=== PATIENT | male | born 1955 | race Caucasian/White ===

== ENCOUNTER → 2020-01-11 | Outpatient (CLI) | payer MEDICARE ==
[2020-01-11 07:44] LABS: Appearance,Urine Clear (Clear); Bilirubin,Urine Negative (Negative); Blood,Urine Negative (Negative); Color,Urine Yellow; Glucose,Urine (UA) Negative (Negative); Ketones,Urine Negative (Negative); Leukocyte Esterase,Urine Negative (Negative); Nitrite,Urine Negative (Negative); Protein,Urine Negative (Negative); Specific Gravity,Urine 1.021 (1.001-1.035); Urobilinogen,Urine <2.0 mg/dL (<2.0)
[2020-01-11 07:46] LABS: Basophils # (A) 0.1 k/uL (0-0.2); Basophils % (A) 1 %; Eosinophils # (A) 0.4 k/uL (0-0.7); Eosinophils % (A) 4 %; HCT 39.7 % (39.0-53.0); HGB 13.7 gm/dL (13.0-17.5); Lymphocytes # (A) 2.9 k/uL (1.0-4.8); Lymphocytes % (A) 29 %; MCH 32.4 pg (25.0-35.0); MCHC 34.6 g/dL (31.0-37.0); MCV 93.7 fL (80.0-100.0); Mean Platelet Volume 6.9; Monocytes # (A) 0.6 k/uL (0-1.0); Monocytes % (A) 6 %; Neutrophils # (A) 5.8 k/uL (1.3-7.7); Neutrophils % (A) 58 %; Platelet Count 326 k/uL (150-450); RBC 4.23 m/uL (4.30-5.90); RDW 12.2 % (11.5-15.5); WBC 9.9 k/uL (3.8-10.6)
[2020-01-11 07:54] LABS: INR 0.9 (<1.2); Partial Thromboplastin Time 22.7 sec (22.0-30.0); Prothrombin Time 9.8 sec (9.0-12.0)
[2020-01-11 07:56] LABS: ALT 32 U/L (4-49); AST 27 U/L (17-59); African American GFR (CKD) >90 (>60 ml/min/1.73 sqM); Albumin 4.3 g/dL (3.5-5.0); Alkaline Phosphatase 72 U/L (38-126); Anion Gap 7 mmol/L; Blood Urea Nitrogen 19 mg/dL (9-20); Calcium 9.7 mg/dL (8.4-10.2); Carbon Dioxide 28 mmol/L (22-30); Chloride 103 mmol/L (98-107); Glucose 152 mg/dL (74-99); Non-African American GFR(CKD) >90 (>60 ml/min/1.73 sqM); Potassium 4.9 mmol/L (3.5-5.1); Sodium 138 mmol/L (137-145); Total Bilirubin 0.5 mg/dL (0.2-1.3); Total Protein 6.9 g/dL (6.3-8.2)
== END | disposition home or self-care (01) ==
LOC: LABPAT 06:59
PROVIDERS: ATTEND Orthopaedic Surgery
DX: Z01.818 Encounter for other preprocedural examination (principal); Z79.01 Long term (current) use of anticoagulants; Z01.812 Encounter for preprocedural laboratory examination
CPT/HCPCS: 36415; 80053; 81003; 85025; 85610; 85730; 87070; 93005

== ENCOUNTER 2020-01-18 10:59 | Day surgery (SDC) | payer MEDICARE, OTHER ==
[2020-01-14 10:20] VITALS: BMI 29.9
[~2020-01-18 10:59] MED LIST: ACETAMINOPHEN TAB 500 MG TAB PO ONE; MELOXICAM 7.5 MG TAB PO ONE; ONDANSETRON 4 MG/2 ML VIAL IVP ONE; TRANEXAMIC ACID 1,000 MG in SODIUM CHLORIDE 0.9% 100 ML IVPB ONE
[2020-01-18] MEDS ORDERED: DEXAMETHASONE SOD PHOSPHATE 10 MG/ML 1 ML VIAL IV ONE (11:17)
[2020-01-18] MEDS ORDERED: HYDROmorphone 0.5 MG/0.5 ML SYRINGE IVP PRN ×3 (11:17→14:52)
[2020-01-18] MEDS ORDERED: ONDANSETRON 4 MG/2 ML VIAL IVP ONE (11:17)
[2020-01-18] MEDS ORDERED: LACTATED RINGERS 1,000 ML IV SCH (11:17)
[2020-01-18 11:37] LABS: Glucose,Whole Blood 164 mg/dL (75-99)
[2020-01-18] MEDS ORDERED: TRANEXAMIC ACID 1,000 MG/10 ML VIAL ONE (12:31)
[2020-01-18] MEDS ORDERED: MIDAZOLAM 2 MG/2 ML VIAL ONE (12:31)
[2020-01-18] MEDS ORDERED: PROPOFOL 10 MG/ML 20 ML VIAL IV ONE (12:31)
[2020-01-18] MEDS ORDERED: PHENYLEPHRINE-0.9% NACL SYG 1 MG/10 ML SYRINGE ONE (12:31)
[2020-01-18] MEDS ORDERED: SODIUM CHLORIDE 0.9% 100 ML BAG ONE (12:31)
[2020-01-18] MEDS: ROPIVACAINE 246.25 MG, EPINEPHrine 0.5 MG, KETOROLAC 30 MG, cloNIDine HCL/PF 80 MCG, WA... MISCELLANE ONE ×10 (13:20→13:39)
[2020-01-18] MEDS ORDERED: ceFAZolin 3,000 MG in SODIUM CHLORIDE 0.9% IRRIGATIO 3,000 ML IRRIGATION ONE (13:34)
[2020-01-18] MEDS ORDERED: LACTATED RINGERS 1,000 ML IV ONE (13:45)
--- NOTE | 2020-01-18 14:22 | P.OP ---
Date of Procedure: 01/18/20 Procedure(s) Performed: PREOPERATIVE DIAGNOSIS: Right hip severe osteoarthritis POSTOPERATIVE DIAGNOSIS: Right hip severe osteoarthritis OPERATION: Right hip total replacement arthroplasty (uncemented implantation with ceramic on polyethylene articulation). ANESTHESIA: Spinal ESTIMATED BLOOD LOSS: 200 ml. CANDY VENDOR: Astrid Dia PA-C (assistance with: patient positioning, retraction, exposure, hemostasis, leg positioning, implantation, irrigation, closure, dressing) COMPLICATIONS: None apparent. COMPONENTS IMPLANTED: Satcia continuum acetabular cup with cluster holes; continuum longevity 15 elevated liner, 32 mm id; Stacia VerSys Fiber Metal stem; VerSys 32 mm femoral head with +0 mm neck length extension INDICATIONS: Mr. Blair a 64-year-old male with significant end-stage osteoarthritis involving the right hip and commensurate severe symptoms. he presents to the operating room today for total hip replacement. I have discussed the steps of the operation as well as potential risks and complications as being inclusive of, but not limited to: Leading, infection, scarring, discomfort, or vessel and/or nerve damage, need for further surgery, loosening, dislocation, wear, osteolysis, limb length inequality, fracture, blood clot, pulmonary embolism, , persistent limp, and other risks. The patient is aware these risks and wishes to proceed with surgery and has signed a consent form. PROCEDURE: After appropriate consent was obtained, the patient was taken to the operating room and placed in supine position. Spinal anesthetic was administered and after confirmation of adequate anesthesia, the patient was placed into the lateral decubitus position with the right side up. Care was taken to make sure that all pressure points were adequately padded and he was stabilized to the table with a [place] hip positioner. The right hip was prepped and draped in the usual aseptic fashion using a combination of ChloraPrep and alcohol. Ioban drape was used for the case and the patient received intravenous antibiotics prior to the incision. "Time out" was called, confirming patient identity, side, procedure, availability of implants and administration of antibiotics and tranexamic acid. The incision was created directly over the greater trochanter and carried s lightly posteriorly for a posterior approach to the hip. The incision was then deepened down to subcutaneous tissue and fascia aquiles. Fascia aquiles was split in line with the incision and split proximally along the fibers of the gluteus mushtaq. The underlying fibers of the muscle were teased apart using finger dissection and bleeding vessels were picked up and coagulated. Retractor was then placed posteriorly consisting of a blunt Downey. The short external rotators and capsule were exposed using good visualization of the attachment of the external rotators to the femur was established. The short external rotators and capsule were released using electrocautery from their femoral attachments. A hockey stick shaped incision was created in the capsule. Joint fluid was evacuated and the patient's hip was able to be dislocated fairly easily. The patient's femoral head was severely arthritic with eburnated bone present and a 360 degrees gagnon of osteophytes. The femoral neck cut was created approximately 1 cm superior to the lesser trochanter using a reciprocating saw. The femoral head and neck fragment was removed and attention was then directed to the acetabulum. An anterior acetabular retractor was applied followed by posterior retraction of the capsule with a Meyerding retractor. This afforded good visualization into the acetabular cavity. Soft tissue was removed and residual cartilage within the acetabular vault was removed using a curette. Labrum was removed using a long-handled knife. Attention was then directed to reaming. The size 44 reamer was used first, followed by increasing increments until the final size reamer was used. Please see the implantation sheet for exact sizes used for the components. Once the final reamer had been utilized to expand the socket it was noted that there was a good supportive bone around the acetabular socket and no further reaming needed to be performed. The trial the same size as the last reamer used was then impacted into the acetabular vault and found to have good fit. The acetabular component, one size (2mm) greater than the trial was then called for. The cluster holes were placed posteriorly and the component was impacted in a position of approximately 40 degrees abduction and 20 degrees anteversion. This matched this patient's quechan anteversion and it was noted that the cup had excellent stability without need for additional screw fixation. Attention was then directed to the acetabular liner. The anteversion and abduction angle of the component was noted to be very good. A 15 elevated liner was used and locked into position with the elevation posterior superior. Osteophytes around the posterior and inferior aspect of the acetabulum were trimmed as necessary to prevent any impingement. Attention was then directed back to the proximal femur. Retractors were placed around the proximal femur and box osteotome was used followed by canal finder and trochanteric reamer. Cylindrical reaming was performed. Progressive broaching was then performed starting with a #10 broach and progressing final size, in a position of 15 degrees anteversion. Unga anteversion was within 5 degrees of stem position. The final size broach had excellent fit and fill of the patient's metaphysis and diaphysis. Trial reduction was then performed starting with size 32 mm femoral head and various neck combination of stability, limb length equality, and soft tissue tension. Trial components were then removed. The canal was lavaged and the final size femoral stem component was impacted into position. The implant fit very well and had excellent stability. The femoral head was then impacted onto the [place] taper. Blood and debris were removed from the acetabular component and the hip was then reduced and checked for stability, limb length and soft tissue tension. These parameters found to be satisfactory, the wound was then thoroughly irrigated with normal saline. Final hemostasis was obtained using electrocautery and IV tranexamic acid, 1 g given at the time of prepping and draping, and another 1 g given at the time of closure. Local anesthetic solution consisting of ropivacaine with epinephrine, clonidine, and ketorolac was also used throughout the case targeting the capsule, fascia, and skin. Closure of the capsule was performed meticulously using #3 Vicryl suture. Four [id number] sutures were placed in the posterior capsule along with repair of the external rotators. The fascia aquiles was then repaired using combination of #3 Vicryl suture in interrupted fashion and Quill and running fashion. 2-0 Vicryl suture was used for the subcutaneous tissues and 3-0 Quill for the skin. Dermabond or Steri-Strips were then applied. The patient tolerated the procedure well. There were no complications and the wound bed was dry and there was no need for drain placement. Sterile dressing was then applied and the patient was carefully removed from the operating room table, placed on the stretcher and was taken to the recovery room in stable condition. Sponge and needle counts were correct.
[2020-01-18] MEDS ORDERED: HYDROmorphone 1 MG/ML 1 ML SYRINGE IVP PRN (14:52)
[2020-01-18] MEDS ORDERED: NALOXONE 0.4 MG/ML 1 ML VIAL IV PRN (14:52)
[2020-01-18] MEDS ORDERED: hydrOXYzine pamoate 25 MG CAP PO PRN (14:52)
[2020-01-18] MEDS ORDERED: ONDANSETRON 4 MG/2 ML VIAL IVP PRN (14:52)
[2020-01-18] MEDS ORDERED: MAGNESIUM HYDROXIDE 2,400 MG/10 ML CUP PO PRN (14:52)
[2020-01-18] MEDS ORDERED: HYDROcodone/APAP 5-325MG 1 EACH TAB PO PRN (14:52)
[2020-01-18 15:18] LABS: Glucose,Whole Blood 202 mg/dL (75-99)
[2020-01-18] MEDS ORDERED: INSULIN ASPART (NovoLOG) 100 UNIT/ML VIAL SQ ONE (15:20)
--- NOTE | 2020-01-18 15:27 | XR ---
EXAMINATION TYPE: XR Hip Limited RT DATE OF EXAM: 01/18/2020 Comparison: None Clinical History: 64-year-old male Status post hip surgery, assess surgical alignment Findings: Image shows placement of right total hip arthroplasty. Both acetabular cup and femoral stem component s of the prosthesis are well seated without periprosthetic fracture. Alignment grossly anatomic. Intr a-articular air and scattered soft tissue air related to recent operation. Impression: Uncomplicated postoperative appearance right total hip arthroplasty.
[2020-01-18 16:53] VITALS: RESP 16
[2020-01-18] MEDS ORDERED: TEMAZEPAM 15 MG CAP PO PRN (19:49)
[2020-01-18] MEDS: ASPIRIN 81 MG PO SCH (20:35)
[2020-01-18] MEDS: HYDROcodone/APAP 7.5-325MG 1 EACH TAB PO PRN (20:36)
[2020-01-18 20:39] LABS: Glucose,Whole Blood 263 mg/dL (75-99)
[2020-01-18] MEDS: INSULIN ASPART (NovoLOG) 100 UNIT/ML VIAL SQ SCH (20:45)
[2020-01-18] MEDS ORDERED: SENNOSIDES-DOCUSATE SODIUM 1 EACH TAB PO SCH (21:00)
--- NOTE | 2020-01-19 03:53 | CONS ---
CONSULTATION DATE OF SERVICE: 01/18/2020 REASON FOR CONSULTATION: Advice regarding diabetes mellitus and other multiple medical issues requested by Dr. Syed. HISTORY OF PRESENT ILLNESS: This 64-year-old gentleman with a past medical history of CVA, TIA, diabetes, hypertension, hyperlipidemia being followed by Dr. Moore in the outpatient setting underwent right total hip arthroplasty by Dr. Syed. The patient tolerated the procedure well. The patient is being closely monitored. There is no history of chest pain, palpitations, shortness of breath, hematochezia or melena at this time. PAST MEDICAL HISTORY: History CVA, TIA, diabetes mellitus, hypertension, hyperlipidemia, memory impairment, melanoma. MEDICATIONS: Home medications are reviewed and include: Tylenol No.3, metformin, Zestril, Norvasc, Naprosyn, multivitamins, Lipitor, Ecotrin, Vistaril, aspirin 81 mg. Doses are reviewed. ALLERGIES: HONEY BEE VENOM. FAMILY HISTORY: History of myocardial infarction, cancer in the family. SOCIAL HISTORY: History of smoking. Occasional alcohol intake. REVIEW OF SYSTEMS: ENT: No diminished hearing or diminished vision. CARDIOVASCULAR SYSTEM: No angina. RESPIRATORY SYSTEM: No cough or hemoptysis. GI: As mentioned earlier. : No dysuria. NERVOUS SYSTEM: No numbness or weakness. ALLERGY/IMMUNOLOGY: No asthma or hayfever. MUSCULOSKELETAL: As mentioned earlier. HEMATOLOGY/ONCOLOGY: No history of anemia. ENDOCRINE: Diabetes mellitus. CONSTITUTIONAL: As mentioned earlier. DERMATOLOGY: As mentioned earlier. RHEUMATOLOGY: Negative. PSYCHIATRY: As mentioned earlier. PHYSICAL EXAMINATION: The patient is alert and oriented x3. Pulse 78, blood pressure 112/68, respirations 16, temperature 97.8, pulse ox 98% on room air. HEENT: Conjunctivae normal. Oral mucosa moist. NECK: No jugular venous distention. No carotid bruit. No lymph node enlargement. CARDIOVASCULAR: S1, S2 muffled. RESPIRATORY: Breath sounds diminished at the bases. A few scattered rhonchi and crackles. ABDOMEN: Soft, nontender. No mass palpable. LEGS: Status post right hip arthroplasty. NERVOUS SYSTEM: Higher functions as mentioned earlier. Moves all 4 limbs. No focal deficits. LYMPHATICS: No lymphadenopathy of the neck, axillae or groin. SKIN: No ulcer, rash or bleeding. JOINTS: Normal except the right hip. LAB INVESTIGATIONS: Glucose 164, 202. Other labs are hematology prior to admission and coags are normal. Chemistries also fairly acceptable. ASSESSMENT: 1. Status post right total hip joint arthroplasty. 2. Diabetes mellitus. 3. History of memory impairment. 4. History of melanoma. 5. History of cerebrovascular accident, transient ischemic attack. 6. History of nicotine dependence. 7. FULL CODE. RECOMMENDATIONS AND DISCUSSION: This 64-year-old gentleman who presented with multiple complex medical issues, we will monitor the patient closely. Continue the current medications. Continues symptomatic treatment. Resume the home medications, otherwise, I would also recommend monitor Accu- Cheks a.c. and at bedtime. DVT prophylaxis. Repeat labs. The patient may be asked to follow up with Dr. Moore after discharge. Thank you Dr. Syed for letting us participate in the care of this patient. BRITTANY / LI: [id number] /
[2020-01-19] MEDS: HYDROcodone/APAP 7.5-325MG 1 EACH TAB PO PRN ×2 (04:57→10:12)
[2020-01-19 06:49] LABS: Basophils % (A) 0 %; Eosinophils % (A) 0 %; HCT 33.3 % (39.0-53.0); HGB 11.4 gm/dL (13.0-17.5); Lymphocytes # (A) 1.8 k/uL (1.0-4.8); Lymphocytes % (A) 13 %; MCH 32.3 pg (25.0-35.0); MCHC 34.1 g/dL (31.0-37.0); MCV 94.7 fL (80.0-100.0); Mean Platelet Volume 6.8; Monocytes # (A) 0.9 k/uL (0-1.0); Monocytes % (A) 6 %; Neutrophils # (A) 11.5 k/uL (1.3-7.7); Neutrophils % (A) 80 %; Platelet Count 317 k/uL (150-450); RBC 3.52 m/uL (4.30-5.90); RDW 12.4 % (11.5-15.5); WBC 14.4 k/uL (3.8-10.6)
[2020-01-19 07:00] LABS: Glucose,Whole Blood 165 mg/dL (75-99)
[2020-01-19] MEDS: INSULIN ASPART (NovoLOG) 100 UNIT/ML VIAL SQ SCH (07:13)
[2020-01-19 07:21] VITALS: BP 104/62; PULSE 77; TEMP 98
[2020-01-19] MEDS: ASPIRIN 81 MG PO SCH (07:22)
[2020-01-19] MEDS ORDERED: lisinopriL 20 MG TAB PO SCH (09:00)
[2020-01-19] MEDS ORDERED: MELOXICAM 7.5 MG TAB PO SCH (09:00)
[2020-01-19] MEDS ORDERED: ASPIRIN 325 MG TAB PO SCH (09:00)
[2020-01-19] MEDS ORDERED: amLODIPine 10 MG TAB PO SCH (09:00)
[2020-01-19] MEDS ORDERED: ATORVASTATIN 20 MG TAB PO SCH (09:00)
[2020-01-19] MEDS ORDERED: MULTIVITAMINS, THERA 1 EACH TAB PO SCH (09:00)
[2020-01-19] MEDS ORDERED: metFORMIN 500 MG TAB PO SCH ×2 (09:00→18:00)
--- NOTE | 2020-01-19 10:44 | P.DS ---
Providers Date of admission: 01/18/2020 Expected date of discharge: 01/19/20 Attending physician: Lebron Syed Consults: 01/18/20 14:57 Consult Physician Routine Consulting Provider: Radha Avila Consult Reason/Comments: medical sam. Do you want consulting provider notified?: Yes Primary care physician: Stacie Moore - Discharge Diagnosis(es) (1) Primary osteoarthritis of right hip Current Visit: Yes Status: Acute (2) Status post total hip replacement, right Current Visit: Yes Status: Acute Hospital Course: This is a 64-year-old male with known history of degenerative arthritis of the right hip. The patient presents for evaluation. After discussion and consideration patient elects to proceed with total hip arthroplasty. The patient is seen preoperatively by his primary care physician and cleared for surgery. Patient is admitted to [facility] on 01/18/2020 for total hip arthroplasty. The procedures performed without complication or sequelae. The patient is doing well postoperatively. Labs and vital signs are stable on day of discharge. On day of discharge patient's hip incision is healing well. There is minimal erythema. There is no drainage noted at this time. There is minimal soft tissu e swelling to the hip and thigh. Patient has full foot and ankle motion without difficulty or pain. Neurovascular status to the right lower extremity is intact. Patient is discharged to home in good condition. Patient Condition at Discharge: Good Plan - Discharge Summary Discharge Rx Participant: Yes New Discharge Prescriptions: New Aspirin [Adult Low Dose Aspirin EC] 81 mg PO BID #1 tablet. Meloxicam [Mobic] 1 - 2 tab PO DAILY PRN #30 tab PRN Reason: Pain HYDROcodone/APAP 7.5-325MG [Narka 7.5-325] 1 - 2 tab PO Q6HR PRN #32 tab PRN Reason: Pain Sennosides-Docusate Sodium [Senokot-S] 1 tab PO BID #60 tablet hydrOXYzine pamoate [Vistaril] 25 mg PO Q4-6H #30 capsule No Action Multivitamins, Thera [Theragran] 1 each PO DAILY amLODIPine [Norvasc] 10 mg PO DAILY lisinopriL [Zestril] 40 mg PO DAILY Aspirin EC [Ecotrin] 325 mg PO DAILY #30 tablet. Atorvastatin [Lipitor] 20 mg PO DAILY metFORMIN HCL [Glucophage] 1,000 mg PO QAM metFORMIN HCL [Glucophage] 500 mg PO 1800 Naproxen Sodium [Naproxen Sodium ER] 500 mg PO DIRECTED PRN PRN Reason: Pain Acetaminophen-Codeine 300-30mg [Tylenol w/codeine #3] 1 tab PO Q4-6H PRN PRN Reason: Pain Discharge Medication List Multivitamins, Thera [Theragran] 1 each PO DAILY 09/18/14 [History] amLODIPine [Norvasc] 10 mg PO DAILY 09/18/14 [History] lisinopriL [Zestril] 40 mg PO DAILY 09/18/14 [History] Aspirin EC [Ecotrin] 325 mg PO DAILY #30 tablet. 09/21/14 [Rx] Acetaminophen-Codeine 300-30mg [Tylenol w/codeine #3] 1 tab PO Q4-6H PRN 01/14/20 [History] Atorvastatin [Lipitor] 20 mg PO DAILY 01/14/20 [History] Naproxen Sodium [Naproxen Sodium ER] 500 mg PO DIRECTED PRN 01/14/20 [History] metFORMIN HCL [Glucophage] 1,000 mg PO QAM 01/14/20 [History] metFORMIN HCL [Glucophage] 500 mg PO 1800 01/14/20 [History] Aspirin [Adult Low Dose Aspirin EC] 81 mg PO BID #1 tablet. 01/18/20 [Rx] HYDROcodone/APAP 7.5-325MG [Narka 7.5-325] 1 - 2 tab PO Q6HR PRN #32 tab 01/18/20 [Rx] Meloxicam [Mobic] 1 - 2 tab PO DAILY PRN #30 tab 01/18/20 [Rx] Sennosides-Docusate Sodium [Senokot-S] 1 tab PO BID #60 tablet 01/18/20 [Rx] hydrOXYzine pamoate [Vistaril] 25 mg PO Q4-6H #30 capsule 01/18/20 [Rx] Follow up Appointment(s)/Referral(s): Astrid Dia PAC [PHYSICIAN [facility] CARE LIAISON] - 02/03/20 2:45 pm Stacie Moore III, MD [Primary Care Provider] - 01/25/20 11:00 am Activity/Diet/Wound Care/Special Instructions: May bear 50% wt to the RLE w walker. May shower if no drainage at 48h post op. Keep Optifoam dressing intact 7-10 days. Discharge Disposition: HOME WITH HOME HEALTH SERVICES
== END 2020-01-19 11:59 | disposition home health service (06) ==
LOC: OR 10:59 → 4SSUR 16:49 → OR 01-19 11:59
PROVIDERS: ATTEND Orthopaedic Surgery
DX: M16.11 Unilateral primary osteoarthritis, right hip (principal); I10 Essential (primary) hypertension; I69.351 Hemiplegia and hemiparesis following cerebral infarction affecting right dominant side; E11.9 Type 2 diabetes mellitus without complications; E78.5 Hyperlipidemia, unspecified; R41.3 Other amnesia; K21.9 Gastro-esophageal reflux disease without esophagitis; Z79.82 Long term (current) use of aspirin; Z79.84 Long term (current) use of oral hypoglycemic drugs; Z79.899 Other long term (current) drug therapy; Z91.030 Bee allergy status; Z87.891 Personal history of nicotine dependence; Z85.820 Personal history of malignant melanoma of skin; Z97.3 Presence of spectacles and contact lenses; Z82.49 Family history of ischemic heart disease and other diseases of the circulatory system; Z80.9 Family history of malignant neoplasm, unspecified
CPT/HCPCS: 97110; 97161; 85025; 88300; 73501; 27130; C1776; J2250; J0171; J1100; J0690 ×3; J2405; J1885; J1170; J2795; J2370; J2704; J0735; 86850; 86900; 86901

== ENCOUNTER → 2020-03-09 | Outpatient (CLI) | payer MEDICARE | END | disposition home or self-care (01) | LOC: LABWHC1 12:27 | PROVIDERS: ATTEND Nurse Practitioner Family | DX: Z20.828 Contact with and (suspected) exposure to other viral communicable diseases (principal) | CPT/HCPCS: U0003; C9803 ==

== ENCOUNTER → 2024-02-21 | Outpatient (CLI) | payer MEDICARE ==
--- NOTE | 2024-02-22 09:53 | CA ---
Transthoracic Echo Report Name: Manoj Griffith Age: 68 Gender: M : 1955 Exam Date: 02/21/2024 16:27 Exam Location: [place] [facility] Ht (in): 70 Wt (lb): 206 Ordering Physician: Britt Andrade MD Attending/Referring Phys: Email Deployment Specialist Kayy Burton RDCS Procedure CPT: Indications: I25.10 Athscl heart disease Cardiac Hx: Technical Quality: Fair Contrast 1: Total Dose (mL): Contrast 2: Total Dose (mL): MEASUREMENTS (Male / Female) Normal Values 2D ECHO LV Diastolic Diameter PLAX 4.9 cm 4.2 - 5.9 / 3.9 - 5.3 cm LV Systolic Diameter PLAX 3.5 cm IVS Diastolic Thickness 1.1 cm 0.6 - 1.0 / 0.6 - 0.9 cm LVPW Diastolic Thickness 1.0 cm 0.6 - 1.0 / 0.6 - 0.9 cm LV Relative Wall Thickness 0.4 RV Internal Dim ED PLAX 4.3 cm LVOT Diameter 2.0 cm LV Diastolic Volume MOD BP 113.6 cm??? 67 - 155 / 56 - 104 cm??? LV Systolic Volume MOD BP 58.4 cm??? 22 - 58 / 19 - 49 cm??? LV Ejection Fraction MOD BP 48.6 % >= 55 % LV Cardiac Index MOD BP 1932.3 cm???/min???m??? LV Diastolic Volume MOD 4C 136.6 cm??? LV Systolic Volume MOD 4C 68.5 cm??? LV Ejection Fraction MOD 4C 49.8 % LV Cardiac Index MOD 4C 2381.8 cm???/min???m??? LV Diastolic Length 4C 8.4 cm LV Systolic Length 4C 7.2 cm LV Diastolic Volume MOD 2C 93.4 cm??? LV Systolic Volume MOD 2C 46.3 cm??? LV Ejection Fraction MOD 2C 50.4 % LV Cardiac Index MOD 2C 1648.9 cm???/min???m??? LV Diastolic Length 2C 8.3 cm LV Systolic Length 2C 6.6 cm LA Volume 49.8 cm??? 18 - 58 / 22 - 52 cm??? LA Volume Index 22.9 cm???/m??? 16 - 28 cm???/m??? DOPPLER AV Peak Velocity 122.2 cm/s AV Peak Gradient 6.0 mmHg AV Mean Velocity 82.6 cm/s AV Mean Gradient 3.1 mmHg AV Velocity Time Integral 23.9 cm LVOT Peak Velocity 94.5 cm/s LVOT Peak Gradient 3.6 mmHg LVOT Velocity Time Integral 18.6 cm LVOT Stroke Volume 60.0 cm??? LVOT Stroke Volume Index 28.4 ml/m??? LVOT Cardiac Index 2100.7 cm???/min???m??? AV Area Cont Eq vti 2.5 cm??? AV Area Cont Eq pk 2.5 cm??? MV Area PHT 3.7 cm??? Mitral E Point Velocity 70.7 cm/s Mitral A Point Velocity 89.7 cm/s Mitral E to A Ratio 0.8 MV Deceleration Time 203.0 ms MV E' Velocity 5.1 cm/s Mitral E to MV E' Ratio 14.0 FINDINGS Left Ventricle Left ventricular cavity size normal. Mild concentric left ventricular hypertrophy. Mildly decreased left ventricular ejection fraction. Left ventricular ejection fraction is estimated at 50 %. Grade 1 diastolic dysfunction. Right Ventricle Right ventricular dilatation. Right ventricular systolic pressure within normal limits. Right Atrium Normal right atrial size. Left Atrium Normal left atrial size. Mitral Valve Structurally normal mitral valve. Mild mitral annular calcification. Mild mitral regurgitation. Aortic Valve Trileaflet aortic valve. No aortic valve stenosis or regurgitation. Tricuspid Valve Structurally normal tricuspid valve. Mild tricuspid regurgitation. Pulmonic Valve Structurally normal pulmonic valve. Pericardium No pericardial effusion. Aorta Normal size aortic root and proximal ascending aorta. CONCLUSIONS LVEF 50% Grade 1 diastolic dysfunction Mild concentric LVH No obvious regional wall motion abnormality No significant valvular dysfunction other than mild TR and mild MR Previewed by: Dr Sid Valdez (Electronically Signed) Final Date: 22 February 2024 09:52
== END | disposition home or self-care (01) ==
LOC: RADECHMAIN 15:52
PROVIDERS: ATTEND Internal Medicine
DX: I25.10 Atherosclerotic heart disease of native coronary artery without angina pectoris (principal); I34.81 Nonrheumatic mitral (valve) annulus calcification; I34.0 Nonrheumatic mitral (valve) insufficiency; I07.1 Rheumatic tricuspid insufficiency
CPT/HCPCS: 93306

== ENCOUNTER → 2024-03-11 | Outpatient (CLI) | payer MEDICARE ==
--- NOTE | 2024-03-11 10:33 | CA ---
Exercise Nuclear Stress Test Report Name: Manoj Griffith Exam Date: 03/11/2024 09:23 Exam Location: [place] Stress Ht (in): 70 Wt (lb): 202 BSA: 2.10 Ordering Phys: Britt Dimas MD Referring Phys: BRITT DIMAS Technologist: LEYLA Age: 69 Gender: M : 1955 Procedure CPT: Indications: I25.10 Coronary Artery atherosclerosis ICD-10 Codes: Patient History: CAD, deabetes, history of CVA. Medications: Meds past 24 hrs: Pretest Chest Pain: STRESS TEST Eloy Protocol Exercise Duration (min:sec): 06:[address] Depressions (mm): Angina Score: Swan Score: Resting HR (bpm): 78 Peak HR (bpm): 133 Resting BP (mmHg): 149 / 83 Peak BP (mmHg): 220 / 80 MPHR: 153 Target HR: 130 % MPHR: 87 METS: 7.8 Total Dose: Peak Dose: Atropine: Double Product: 86875 BP Response: Stress Termination: Infusion complete Stress Symptoms: No chest pain or symptoms Stress Summary: ECG ANALYSIS Resting ECG: Stress ECG: CONCLUSIONS Baseline EKG revealed a normal sinus rhythm without significant ST and T-wave changes. Patient walked for about 6-1/2 minutes and achieved a maximum heart rate of 132 bpm more than 85% of predicted maximal. There was no angina. There was no arrhythmia. There were no ST segment changes to indicate ischemia. By EKG criteria this is a negative stress test with fair exercise capacity. The nuclear scan results which are more pertinent will be reported by the radiologist Dr. Frank Perea MD (Electronically Signed) Final Date: 11 March 2024 10:32
--- NOTE | 2024-03-11 23:07 | NM ---
EXAMINATION TYPE: NM stress cardiolite complete DATE OF EXAM: 03/11/2024 COMPARISON: NONE CLINICAL INDICATION: Male, 69 years old with history of I25.10 Coronary Artery atherosclerosis; histo ry of diabetes and hypercholesterolemia along with tobacco use. TECHNIQUE: After the intravenous administration of 9.61 mCi Tc 99m Sestamibi - Rest images obtained 45 minutes post injection. The patient exercised using a SAVANNAH protocol and 1 minute prior to peak exercise was injected with 25.8 mCi Tc 99m Sestamibi - Stress images obtained 10 minutes post injecti on. FINDINGS: Targeted heart rate was achieved during performance of the study. Review of stress and rest SPECT odalis ges demonstrates no distinct perfusion abnormality. Diminished uptake in the apex on stress or rest i mages could reflect old infarct versus artifact. Gated analysis shows normal wall motion with an est imated left ventricular ejection fraction of 50 %. IMPRESSION: No scintigraphic evidence for reversible ischemia [facility], , 03/11/2024 11:05 PM
== END | disposition home or self-care (01) ==
LOC: RADNMMAIN 07:31
PROVIDERS: ATTEND Internal Medicine
DX: I25.10 Atherosclerotic heart disease of native coronary artery without angina pectoris (principal); E11.9 Type 2 diabetes mellitus without complications; E78.00 Pure hypercholesterolemia, unspecified; Z72.0 Tobacco use; Z86.73 Personal history of transient ischemic attack (TIA), and cerebral infarction without residual deficits
CPT/HCPCS: 93017; 78452; A9500

== ENCOUNTER → 2024-04-18 | Outpatient (CLI) | payer MEDICARE ==
--- NOTE | 2024-04-18 08:54 | CTL ---
EXAMINATION TYPE: CT Low Dose Lung DATE OF EXAM: 04/18/2024 8:33 AM COMPARISON: None. CLINICAL INDICATION: Male, 69 years old with history of Z12.2 LUNG CA SCR F17.210 CURRENT SMOKER; smo ker, history of tobacco use. TECHNIQUE: Multiple axial non-contrast scans were obtained from approximately the lung apices through the upper abdomen. Coronal and sagittal reformatted images were obtained. Low dose technique was uti lized. MIP were created on a separate workstation and submitted for review. CT DLP: 129.5 mGycm, Automated exposure control for dose reduction was used. CT Contrast: Contrast used: None Oral contrast used: None FINDINGS: Lack of intravenous contrast and low dose technique limits the evaluation of the vascular and soft ti ssue structures. LUNGS: No evidence of pulmonary fibrosis. No evidence of focal consolidation, pneumothorax or pleural effusion. Centrilobular emphysema changes. Nodules: RUL: None. RML: None. RLL: None. HAILY: None. LLL: None. AIRWAY: Patent and unremarkable. HEART: Size within normal limits.Atherosclerosis of the arterial vasculature. MEDIASTINUM: No gross evidence of adenopathy. VASCULATURE: No aortic aneurysm. MUSCULOSKELETAL: No acute osseous abnormalities SOFT TISSUES/LYMPH NODES: Unremarkable. LOWER NECK: No significant findings. UPPER ABDOMEN: Fatty suture atrophy of the pancreatic parenchyma. IMPRESSION: 1. No clinically significant pulmonary nodules. 2. Mild emphysema. CT LUNG RAD AND CT CHEST RECOMMENDATION: Lung-Rad 1 Negative: Continue annual screening with LDCT in 12 months. S Modifier (other clinically significant findings): None Recommend smoking cessation (if current smoker), or continuation of smoking cessation (if prior smoke r). Annual screening for lung cancer with low-dose computed tomography is recommended in adults ages 55 to 77 years who have a 30 pack-year smoking history and currently smoke or have quit within the pa st 15 years. Screening should be discontinued once a person has not smoked for 15 years or develops a health problem that substantially limits life expectancy or the ability or willingness to have curat adiel lung surgery. Lung rads 2021 [email or web address] [facility], , 04/18/2024 8:52 AM
== END | disposition home or self-care (01) ==
LOC: RADCTMAIN 07:40
PROVIDERS: ATTEND Internal Medicine
DX: Z12.2 Encounter for screening for malignant neoplasm of respiratory organs (principal); J43.2 Centrilobular emphysema; F17.210 Nicotine dependence, cigarettes, uncomplicated
CPT/HCPCS: 71271

== ENCOUNTER → 2024-07-03 | Outpatient (CLI) | payer MEDICARE ==
--- NOTE | 2024-07-03 15:44 | US ---
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 TECHNIQUE: Grayscale, color Doppler and spectral Doppler evaluation of the bilateral carotid systems and vertebral arteries. Indirect Doppler criteria was utilized. 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 Spectral waveforms are within normal limits. IMPRESSION: Suboptimal study. Right: Less than 50% stenosis of the carotid bifurcation. Left: Less than 50% stenosis of the carotid bifurcation. Criteria for Assigning % of Stenosis / Diameter reduction (Estimation based on the indirect measurements of the internal carotid artery velocities (ICA PSV). 1. Normal (no stenosis)=ICA PSV < 180 cm/s: ratio < 2.0: ICA EDV<40 cm/s. 2. Less than 50% stenosis=ICA PSV < 180 cm/s: ratio < 2.0: ICA EDV<40 cm/s. 3. 50 to 69% stenosis=ICA PSV of 180 to 230 cm/s: ration 2.0 ? 4.0: ICA EDV 40-100 cm/s. PSV 125-180 cm/sec and ICA/CCA PSV Ratio ? 2.0 is also consistent with 50-69% stenosis 4. Greater than 70% stenosis to near occlusion= ICA PSV > 230 cm/s: ratio > 4.0: ICA EDV > 100 cm/s. 5. Near occlusion= ICA PSV velocities may be low or undetectable: variable ratio and ICA EDV. 6. Total occlusion=unable to detect flow. [facility], , 07/03/2024 3:42 PM
== END | disposition home or self-care (01) ==
LOC: RADUSWWP 15:04
PROVIDERS: ATTEND Internal Medicine
DX: I65.23 Occlusion and stenosis of bilateral carotid arteries (principal)
CPT/HCPCS: 93880

== ENCOUNTER → 2024-07-07 | Outpatient (CLI) | payer MEDICARE | LOC: CPPFTMAIN 13:55 | PROVIDERS: ATTEND Internal Medicine | DX: J43.9 Emphysema, unspecified (principal); F17.200 Nicotine dependence, unspecified, uncomplicated; Z91.030 Bee allergy status | CPT/HCPCS: 94060; 94726; 94729 ==